=== PATIENT | female | born 1965 | race Caucasian/White ===

== ENCOUNTER 2018-06-17 18:04 | Emergency (ER) | payer BC ==
[~2018-06-17] VITALS: Ht 157.5 cm; Wt 127.1 kg
[~2018-06-17 18:04] MED LIST: CETI10TA20 PO; LINE600T5 PO; SERT50TA2 PO; ZOLP5TAB PO
[2018-06-17] MEDS ORDERED: ASPIRIN 81 MG CHEW (CHILDREN'S ASA) PO ONE (18:15)
--- NOTE | 2018-06-17 18:22 | ED Cardiac General ---
History of Present Illness General Stated Complaint: PULSE 250 1 HR AGO, SWEATING,DIZZY Source: patient Exam Limitations: no limitations History of Present Illness Date Seen by Provider: Jun 17, 2018 Time Seen by Provider: 18:19 Initial Comments To ER per private vehicle with reports of high heart rate as high as 250 per her monitor at work. 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 At the time she had some tightness in her neck sweatiness and shakiness. This happened at about 5 PM. Symptoms lasted about 45 minutes while she was driving here and resolved spontaneously. She had a similar episode 2 years ago where she went to the [facility] and states that they "stopped my heart and restarted it" referring to using a medication. They then started her on metoprolol and she followed up with Dr. High from cardiology at [place]. He told her that she could stop taking the metoprolol at any time and she's not had any issues since then. At the time of presentation to the emergency room she states that she feels back to normal Timing/Duration: 1-3 hours Severity: moderate Activities at Onset: none NTG SL STEAM TABLE WORKER: No ASA po STEAM TABLE WORKER: No Associated Systoms: Chest Pain; No Nausea/Vomiting Allergies and Home Medications Allergies Coded Allergies: Penicillins (Verified Allergy, Unknown, 05/28/15) Sulfa (Sulfonamide Antibiotics) (Verified Allergy, Unknown, 05/28/15) Home Medications Cetirizine HCl 10 Mg Tablet, 10 MG PO DAILY PRN for ALLERGIES, (Reported) Sertraline HCl 50 Mg Tablet, 50 MG PO HS, (Reported) Zolpidem Tartrate 5 Mg Tablet, 2.5 MG PO HS, (Reported) TAKES 1/2 (5MG) TABLET Patient Home Medication List Home Medication List Reviewed: Yes Review of Systems Review of Systems Constitutional: see HPI EENTM: No Symptoms Reported Respiratory: No Symptoms Reported Cardiovascular: See HPI; Denies Chest Pain; Palpitations Gastrointestinal: No Symptoms Reported Genitourinary: No Symptoms Reported Musculoskeletal: no symptoms reported Skin: no symptoms reported Psychiatric/Neurological: No Symptoms Reported Endocrine: No Symptoms Reported Hematologic/Lymphatic: No Symptoms Reported Past Qohnicp-Qwpgoe-Axqxxs Hx Patient Social History Recent Foreign Travel: No Contact w/Someone Who Travel: No Past Medical History Section Reproductive Disorders: Yes Sexually Transmitted Disease: No HIV/AIDS: No Depression Family Medical History Respiratory disorder 19 FATHER Physical Exam Vital Signs Vital Signs - First Documented Capillary Refill : Height, Weight, BMI Height: 5'2.00" Weight: 280lbs. 2.0oz. 127.734531wa; BMI Method: General Appearance: No Apparent Distress, WD/WN, Obese HEENT: PERRL/EOMI, TMs Normal Neck: Full Range of Motion, Normal Inspection Respiratory: No Accessory Muscle Use, No Respiratory Distress Cardiovascular: Normal Peripheral Pulses, Tachycardia (111 sinus rhythm) Gastrointestinal: Non Tender Extremity: Normal Capillary Refill, Normal Inspection Neurologic/Psychiatric: Alert, Oriented x3 Skin: Normal Color, Warm/Dry Progress/Results/Core Measures Results/Orders Lab Results Laboratory Tests Test 06/17/18 18:17 Range/Units White Blood Count 6.9 4.3-11.0 10^3/uL Red Blood Count 5.09 4.35-5.85 10^6/uL Hemoglobin 16.3 H 11.5-16.0 G/DL Hematocrit 46 35-52 % Mean Corpuscular Volume 90 80-99 FL Mean Corpuscular Hemoglobin 32 25-34 PG Mean Corpuscular Hemoglobin Concent 36 32-36 G/DL Red Cell Distribution Width 13.8 10.0-14.5 % Platelet Count 255 130-400 10^3/uL Mean Platelet Volume 10.5 H 7.4-10.4 FL Neutrophils (%) (Auto) 58 42-75 % Lymphocytes (%) (Auto) 29 12-44 % Monocytes (%) (Auto) 11 0-12 % Eosinophils (%) (Auto) 2 0-10 % Basophils (%) (Auto) 0 0-10 % Neutrophils # (Auto) 4.0 1.8-7.8 X 10^3 Lymphocytes # (Auto) 2.0 1.0-4.0 X 10^3 Monocytes # (Auto) 0.8 0.0-1.0 X 10^3 Eosinophils # (Auto) 0.2 0.0-0.3 10^3/uL Basophils # (Auto) 0.0 0.0-0.1 10^3/uL Prothrombin Time 12.6 12.2-14.7 SEC INR Comment 0.9 0.8-1.4 Activated Partial Thromboplast Time 30 24-35 SEC D-Dimer 0.29 0.00-0.49 UG/ML Sodium Level 139 135-145 MMOL/L Potassium Level 3.7 3.6-5.0 MMOL/L Chloride Level 109 H 98-107 MMOL/L Carbon Dioxide Level 19 L 21-32 MMOL/L Anion Gap 11 5-14 MMOL/L Blood Urea Nitrogen 18 7-18 MG/DL Creatinine 0.81 0.60-1.30 MG/DL Estimat Glomerular Filtration Rate > 60 BUN/Creatinine Ratio 22 Glucose Level 117 H 70-105 MG/DL Calcium Level 9.5 8.5-10.1 MG/DL Corrected Calcium 9.2 8.5-10.1 MG/DL Magnesium Level 2.3 1.8-2.4 MG/DL Total Bilirubin 0.4 0.1-1.0 MG/DL Aspartate Amino Transf (AST/SGOT) 33 5-34 U/L Alanine Aminotransferase (ALT/SGPT) 37 0-55 U/L Alkaline Phosphatase 81 40-136 U/L Myoglobin 25.9 10.0-92.0 NG/ML Troponin I < 0.30 <0.30 NG/ML B-Type Natriuretic Peptide 23.5 <100.0 PG/ML Total Protein 7.7 6.4-8.2 GM/DL Albumin 4.4 3.2-4.5 GM/DL My Orders Orders - VLADIMIR HIGH APRN Cbc With Automated Diff (06/17/18 18:06) Magnesium (06/17/18 18:06) Ekg Tracing (06/17/18 18:06) Cardiac Profile 1 (06/17/18 18:06) Comprehensive Metabolic Panel (06/17/18 18:) Myoglobin Serum (06/17/18 18:) Protime With Inr (06/17/18 18:) Partial Thromboplastin Time (06/17/18 18:06) O2 (06/17/18 18:06) Monitor-Rhythm Ecg Trace Only (06/17/18 18:) Lipid Panel (06/18/18 06:00) Aspirin Chewable Tablet (Baby Aspirin Ch (06/17/18 18:15) Saline Lock/Iv-Start (06/17/18 18:06) BNP (06/17/18 18:06) Fibrin Degradation Products (06/17/18 18:06) Metoprolol Tartrate Injection (Lopressor (06/17/18 18:30) Ns Iv 500 Ml (Sodium Chloride 0.9%) (06/17/18 18:30) Troponin I (06/17/18 20:30) Ekg Tracing (06/17/18 20:30) Medications Given in ED Current Medications Medications Dose Ordered Sig/Sean Route Start Time Stop Time Status Last Admin Dose Admin Aspirin 324 mg ONCE ONCE PO 06/17/18 18:15 06/17/18 18:16 DC 06/17/18 18:47 324 MG Metoprolol Tartrate 5 mg ONCE ONCE IV 06/17/18 18:30 06/17/18 18:31 DC 06/17/18 18:48 5 MG Vital Signs/I&O 06/17/18 06/17/18 18:40 18:40 Temp 98.1 Pulse 99 Resp 22 B/P (MAP) 180/97 (124) Pulse Ox 99 99 O2 Delivery Room Air Room Air Departure Communication (Admissions) 2010-her blood pressures down to 151/93. Heart rate 80s sinus without ectopy. She is feeling back to normal. If her repeat troponin and EKG is unremarkable we will discharge to home. If her blood pressure remains elevated at home I advised her that she should check it at work couple of times over the remainder of this week. If systolic greater than 150 start the high blood pressure medication. Impression Primary Impression: History of tachycardia Additional Impression: suspected PSVT Disposition: HOME, SELF-CARE Condition: Improved Departure-Patient Inst. Decision time for Depature: 20:09 Referrals: PARISA HUTCHINSON (PCP/Family) Primary Care Physician Patient Instructions: Paroxysmal Supraventricular Tachycardia (DC) Add. Discharge Instructions: 1. If the top number of your blood pressure is over 150mmHg on readings at work on 2 different days then start the high blood pressure medication as directed. Follow-up with your primary care provider within the next few weeks for follow- up. Scripts Metoprolol Succinate (Toprol Xl) 50 Mg Tab.er.24h 50 MG PO DAILY, #30 TAB Prov: VLADIMIR HIGH APRN 06/17/18 Work/School Note: Work Release Form Date Seen in the Emergency Department: Jun 17, 2018 Return to Work: Jun 18, 2018 VLADIMIR HIGH APRN Jun 17, 2018 18:22
[2018-06-17 18:25] LABS: BASOPHILS % (AUTO) 0 % (0-10); EOSINOPHILS # (AUTO) 0.2 10^3/uL (0.0-0.3); EOSINOPHILS % (AUTO) 2 % (0-10); HEMATOCRIT 46 % (35-52); HEMOGLOBIN 16.3 G/DL (11.5-16.0); LYMPHOCYTES % (AUTO) 29 % (12-44); MEAN CORPUSCULAR HEMOGLOBIN 32 PG (25-34); MEAN CORPUSCULAR HGB CONC 36 G/DL (32-36); MEAN CORPUSCULAR VOLUME 90 FL (80-99); MEAN PLATELET VOLUME 10.5 FL (7.4-10.4); MONOCYTES # (AUTO) 0.8 X 10^3 (0.0-1.0); MONOCYTES % (AUTO) 11 % (0-12); NEUTROPHILS % (AUTO) 58 % (42-75); PLATELET COUNT 255 10^3/uL (130-400); RED BLOOD COUNT 5.09 10^6/uL (4.35-5.85); RED CELL DISTRIBUTION WIDTH 13.8 % (10.0-14.5); WHITE BLOOD COUNT 6.9 10^3/uL (4.3-11.0)
[2018-06-17] MEDS ORDERED: NS IV 500 ML 500 ML IV SCH (18:30)
[2018-06-17] MEDS ORDERED: meTOprolol 5 MG/5 ML (LOPRESSOR) VIAL IV ONE (18:30)
[2018-06-17 18:38] LABS: INR 0.9 (0.8-1.4); PROTHROMBIN TIME PATIENT 12.6 SEC (12.2-14.7)
--- OUTSIDE RECORDS SUMMARY | 2018-06-17 18:43 | XMS REPORT ---
Author Author Kalyani Colbert [facility] Address [address] [place], [place] [id number] Care Team Providers Care Drugless Doctor Name Role Phone Kalyani Colbert PCP Zuri Perez PreferredProvider Allergies and Adverse Reactions Name Reaction Notes SULFA (SULFONAMIDES) PENICILLINS Plan of Treatment Planned Activity Comments Planned Date Planned Time Plan/Goal Lipid panel 09/16/2017 12:00 AM CBC W/ AUTO DIFF (RFLX MAN DIFF IF IND). 09/16/2017 12:00 AM CMP 09/16/2017 12:00 AM Medications Active Name Start Date Estimated Completion Date SIG Comments Claritin 10 mg oral tablet take 1 tablet (10 mg) by oral route once daily Xanax 0.25 mg oral tablet 03/29/2018 take 1 tablet by oral route daily as needed ProAir HFA 90 mcg/actuation inhalation HFA aerosol inhaler 03/29/2018 inhale 1 puff (90 mcg) by inhalation route every 4-6 hours as needed Lexapro 10 mg oral tablet 04/14/2018 take 1 tablet (10 mg) by oral route once daily Name Start Date Expiration Date SIG Comments Cipro 500 mg oral tablet 10/28/2013 11/04/2013 take 1 tablet (500 mg) by oral route every 12 hours for 7 days Zithromax Z-Manolo 250 mg oral tablet 12/05/2013 12/10/2013 take 2 tablets (500 mg) by oral route once daily for 1 day then 1 tablet (250 mg) by oral route once daily for 4 days zolpidem 5 mg oral tablet 10/09/2016 04/07/2017 take 1 tablet (5 mg) by oral route once daily at bedtime for 30 days Zithromax 250 mg oral tablet 10/28/2016 11/02/2016 take 2 tablets (500 mg) by oral route once daily for 1 day then 1 tablet (250 mg) by oral route once daily for 4 days Singulair 10 mg oral tablet 10/28/2016 12/27/2016 take 1 tablet (10 mg) by oral route once daily in the evening for 30 days promethazine-codeine 6.25-10 mg/5 mL oral syrup 10/28/2016 11/04/2016 take 5 milliliters by oral route every 4-6 hours as needed, not to exceed 30 mL in 24 hours for 7 days azithromycin 250 mg oral tablet 03/06/2018 03/11/2018 take 2 tablets (500 mg) by oral route once daily for 1 day then 1 tablet (250 mg) by oral route once daily for 4 days Discontinued Name Start Date Discontinued Date SIG Comments TriNessa () 0.18/0.215/0.25 mg-35 mcg (28) oral tablet 02/12/2016 take 1 tablet by oral route once daily Aldactone 100 mg oral tablet 02/12/2016 take 1 tablet (100 mg) by oral route once daily Medrol (Manolo) 4 mg oral tablets,dose pack 10/28/2013 02/12/2016 take as directed promethazine-codeine 6.25-10 mg/5 mL oral syrup 12/05/2013 02/12/2016 take 5 milliliters by oral route every 4-6 hours as needed, not to exceed 30 mL in 24 hours melatonin 5 mg oral capsule 10/09/2016 Zyrtec 10 mg oral tablet 10/09/2016 take 1 tablet (10 mg) by oral route once daily Zoloft 50 mg oral tablet 10/15/2017 03/29/2018 1 tablet bid change to Viibryd Viibryd 40 mg oral tablet 03/29/2018 04/14/2018 take 1 tablet (40 mg) by oral route once daily with food for 30 days Changed to Lexapro 10mg Problem List Not available. Vital Signs Date Time BP-Sys(mm[Hg] BP-Ciera(mm[Hg]) HR(bpm) RR(rpm) Temp WT HT HC BMI BSA BMI Percentile O2 Sat(%) 03/29/2018 1:31:00 PM 152 mmHg 90 mmHg 96 bpm 18 rpm 97.5 F 255.5 lbs 62 in 46.7311 kg/m 2.2516 m 95 % 03/06/2018 10:55:00 AM 128 mmHg 80 mmHg 76 bpm 18 rpm 98.1 F 260.5 lbs 62 in 47.65 kg/m2 2.27 m2 95 % 09/16/2017 9:38:00 AM 124 mmHg 70 mmHg 78 bpm 18 rpm 97.6 F 268 lbs 62 in 49.0173 kg/m 2.306 m 95 % 10/28/2016 3:30:00 PM 142 mmHg 88 mmHg 90 bpm 18 rpm 97.8 F 265.25 lbs 62 in 48.51 kg/m2 2.29 m2 96 % 10/09/2016 1:53:00 PM 118 mmHg 70 mmHg 76 bpm 18 rpm 97.6 F 268.375 lbs 62 in 49.0859 kg/m 2.3076 m 97 % 02/12/2016 8:29:00 AM 132 mmHg 76 mmHg 66 bpm 18 rpm 98.1 F 270.5 lbs 98 % 12/05/2013 11:11:00 AM 142 mmHg 74 mmHg 96 bpm 18 rpm 97.6 F 262.375 lbs 62 in 47.9885 kg/m 2.2817 m 96 % 10/28/2013 10:16:00 AM 130 mmHg 85 mmHg 74 bpm 16 rpm 96.3 F 256 lbs 97 % 06/17/2013 4:06:00 PM 120 mmHg 80 mmHg 74 bpm 18 rpm 98.4 F 237 lbs 62 in 43.3474 kg/m 2.1686 m 98 % Social History Name Description Comments Caffeine Current every day 8 cups a day Tobacco Former smoker Alcohol Use - Rare History of Procedures Date Ordered Description Order Status 10/28/2016 12:00 AM THER/PROPH/DIAG INJ SC/IM Reviewed 10/28/2016 12:00 AM Decadron 4mg Injection Reviewed 10/28/2016 12:00 AM Depo-Medrol 40mg Injection Reviewed 09/16/2017 12:00 AM CYTOPATH C/V THIN LAYER Reviewed 03/06/2018 12:00 AM AIRWAY INHALATION TREATMENT Reviewed 03/06/2018 12:00 AM THER/PROPH/DIAG INJ SC/IM Reviewed 03/06/2018 12:00 AM Decadron 4mg Injection Reviewed 03/06/2018 12:00 AM Depo-Medrol 40mg Injection Reviewed 06/17/2013 12:00 AM THER/PROPH/DIAG INJ SC/IM Reviewed 06/17/2013 12:00 AM Depo-Medrol, Per 80 Mg NDC#2837-3080-24. Injected IM left glut. Lot: [id number] Exp: 07/29. Jemma ALEXANDER Reviewed 06/17/2013 12:00 AM Decadron, Per 1 Mg NDC# [address]-02. Injected 8 mg IM left glut. Lot: [id number] Exp: 02/25. Jemma ALEXANDER Reviewed 12/05/2013 12:00 AM THER/PROPH/DIAG INJ SC/IM Reviewed 12/05/2013 12:00 AM Decadron, Per 1 Mg NDC# [address]-35 Reviewed 12/05/2013 12:00 AM Depo-Medrol, Per 80 Mg NDC#0491-7554-25 Reviewed Results Summary Not available. History Of Immunizations Not available. History of Past Illness Name Date of Onset Comments Depression with Anxiety Polycystic Ovaries Bronchitis Upper Respiratory Infections Jun 17 2013 4:08PM Sinusitis Oct 28 2013 10:18AM Upper Respiratory Infections Dec 05 2013 11:14AM Pre-employment examination Feb 12 2016 8:34AM Obesity Oct 09 2016 1:53PM Insomnia, unspecified type Oct 09 2016 1:53PM Anxiety Oct 09 2016 1:53PM Perimenopausal Oct 09 2016 1:53PM Cough Oct 28 2016 3:33PM Purulent rhinitis Oct 28 2016 3:33PM Reactive airway disease that is not asthma Oct 28 2016 3:33PM General medical examination; routine general medical examination at a health care facility Sep 16 2017 9:39AM Screening Mammogram For High Risk Patient Sep 16 2017 9:39AM Menopause Sep 16 2017 9:39AM Anxiety Sep 16 2017 9:39AM Mood swings Sep 16 2017 9:39AM Depression (emotion) Sep 16 2017 9:39AM Bronchitis Mar 06 2018 11:00AM Wheezing Mar 06 2018 11:00AM Acute bronchitis, unspecified organism Mar 29 2018 1:34PM Anxiety Mar 29 2018 1:34PM Moderate episode of recurrent major depressive disorder Mar 29 2018 1:34PM Payers Insurance Name Company Name Plan Name Plan Number Policy Number Policy Group Number Start Date [employer] [facility] [id number] Monday, 2015 [facility] Occupational Medicine [phone] N/A [employer] [facility] [id number] Saturday, September 14, 2013 History of Encounters Visit Date Visit Type Provider 03/29/2018 Office visit Kalyani Colbert RELOCATION SERVICES SPECIALIST 03/06/2018 Office visit Gillian Valadez RELOCATION SERVICES SPECIALIST 09/16/2017 Office visit Zuri Perez RELOCATION SERVICES SPECIALIST 10/28/2016 Office visit Zuri Perez RELOCATION SERVICES SPECIALIST 10/09/2016 Office visit Zuri Perez RELOCATION SERVICES SPECIALIST 02/12/2016 Office visit Kalyani Colbert RELOCATION SERVICES SPECIALIST 05/21/2015 [facility] Ryne High MD 12/05/2013 Office visit Kalyani Colbert RELOCATION SERVICES SPECIALIST 10/28/2013 Office visit Eduardo Edge RELOCATION SERVICES SPECIALIST 06/17/2013 Office visit Eduardo Edge RELOCATION SERVICES SPECIALIST
--- OUTSIDE RECORDS SUMMARY | 2018-06-17 18:44 | XMS REPORT ---
Author Author Kalyani Colbert [facility] Address [address] [place], [place] [id number] Care Team Providers Care Artificial Breeding Technician Name Role Phone Kalyani Colbert PCP Zuri [...] 06/17/2013 12:00 AM Depo-Medrol, Per 80 Mg NDC#5449-9042-12. Injected IM left glut. Lot: [id number] Exp: 07/29. Jemma ALEXANDER Reviewed 06/17/2013 12:00 AM Decadron, Per 1 Mg NDC# [address]-72. Injected 8 mg IM left glut. Lot: [id number] Exp: 02/25. Jemma ALEXANDER Reviewed 12/05/2013 12:00 AM THER/PROPH/DIAG INJ SC/IM Reviewed 12/05/2013 12:00 AM Decadron, Per 1 Mg NDC# [address]-47 Reviewed 12/05/2013 12:00 AM Depo-Medrol, Per 80 Mg NDC#9121-8315-85 Reviewed Results Summary Not available. History Of [...] Number Policy Group Number Start Date [employer]BS [facility] [id number] Monday, 2015 [facility] Occupational Medicine [phone] N/A [employer]BS [facility] [id number] Saturday, September 14, 2013 History of Encounters Visit Date Visit Type Provider 03/29/2018 Office visit Kalyani Colbert MANAGER CODING 03/06/2018 Office visit Gillian Valadez MANAGER CODING 09/16/2017 Office visit Zuri Perez MANAGER CODING 10/28/2016 Office visit Zuri Perez MANAGER CODING 10/09/2016 Office visit Zuri Perez MANAGER CODING 02/12/2016 Office visit Kalyani Colbert MANAGER CODING 05/21/2015 [facility] Ryne High MD 12/05/2013 Office visit Kalyani Colbert MANAGER CODING 10/28/2013 Office visit Eduardo Edge MANAGER CODING 06/17/2013 Office visit dEuardo Edge MANAGER CODING
--- OUTSIDE RECORDS SUMMARY | 2018-06-17 18:44 | XMS REPORT ---
Author Author Zuri Perez Organization [facility] Address [address] [place], [place] [id number] Care Team Providers Care Sleeve Setter Safety Stitch Name Role Phone Zuri Perez PCP [phone] Zuri Perez PreferredProvider [phone] Allergies and Adverse Reactions Name Reaction Notes SULFA (SULFONAMIDES) PENICILLINS Plan of Treatment Not available. Medications Active Name Start Date Estimated Completion Date SIG Comments Zoloft 50 mg oral tablet 10/09/2016 04/07/2017 1/2 tablet in am and 1 tablet in pm zolpidem 5 mg oral tablet 10/09/2016 04/07/2017 take 1 tablet (5 mg) by oral route once daily at bedtime for 30 days Singulair 10 mg oral tablet 10/28/2016 12/27/2016 take 1 tablet (10 mg) by oral route once daily in the evening for 30 days Name Start Date Expiration Date SIG Comments Cipro 500 mg oral tablet 10/28/2013 11/04/2013 take 1 tablet (500 mg) by oral route every 12 hours for 7 days Zithromax Z-Manolo 250 mg oral tablet 12/05/2013 12/10/2013 take 2 tablets (500 mg) by oral route once daily for 1 day then 1 tablet (250 mg) by oral route once daily for 4 days Zithromax 250 mg oral tablet 10/28/2016 11/02/2016 take 2 tablets (500 mg) by oral route once daily for 1 day then 1 tablet (250 mg) by oral route once daily for 4 days promethazine-codeine 6.25-10 mg/5 mL oral syrup 10/28/2016 11/04/2016 take 5 milliliters by oral route every 4-6 hours as needed, not to exceed 30 mL in 24 hours for 7 days Discontinued Name Start Date Discontinued Date SIG Comments TriNessa (28) 0.18/0.215/0.25 mg-35 mcg (28) oral tablet 02/12/2016 [...] (10 mg) by oral route once daily Problem List Not available. Vital Signs Date Time BP-Sys(mm[Hg] BP-Ciera(mm[Hg]) HR(bpm) RR(rpm) Temp WT HT HC BMI BSA BMI Percentile O2 Sat(%) 10/28/2016 3:30:00 PM 142 mmHg 88 mmHg [...] 10/28/2016 12:00 AM Depo-Medrol 40mg Injection Reviewed 06/17/2013 12:00 AM THER/PROPH/DIAG INJ SC/IM Reviewed 06/17/2013 12:00 AM Depo-Medrol, Per 80 Mg NDC#4385-4652-77. Injected IM left glut. Lot: [id number] Exp: 07/29. Jemma APPRAISAL SPECIALIST Reviewed 06/17/2013 12:00 AM Decadron, Per 1 Mg [facility]# [address]-60. Injected 8 mg IM left glut. Lot: [id number] Exp: 02/25. Jemma APPRAISAL SPECIALIST Reviewed 12/05/2013 12:00 AM THER/PROPH/DIAG INJ SC/IM Reviewed 12/05/2013 12:00 AM Decadron, Per 1 Mg NDC# [address]-07 Reviewed 12/05/2013 12:00 AM Depo-Medrol, Per 80 Mg ND#1771-1850-46 Reviewed Results Summary Not available. History Of [...] is not asthma Oct 28 2016 3:33PM Payers Insurance Name Company Name Plan Name Plan Number Policy Number Policy Group Number Start Date [facility] [id number] Monday, 2015 [facility] Occupational Medicine [phone] N[facility] [id number] Saturday, September 14, 2013 History of Encounters Visit Date Visit Type Provider 10/28/2016 Office visit Zuri ePrez TEACHER THEATER ARTS 10/09/2016 Office visit Zuri Perez TEACHER THEATER ARTS 02/12/2016 Office visit Kalyani Colbert TEACHER THEATER ARTS 05/21/2015 [facility] Ryne High MD 12/05/2013 Office visit Kalyani Colbert APRN 10/28/2013 Office visit Eduardo Edge APRN 06/17/2013 Office visit Eduardo Edge APRN
--- OUTSIDE RECORDS SUMMARY | 2018-06-17 18:44 | XMS REPORT ---
Author Author Kalyani Colbert [facility] Address [address] [place], [place] [address] Care Team Providers Care Electric Repair Supervisor Name Role Phone Kalyani Colbert PCP Zuri [...] (10 mg) by oral route once daily Viibryd 40 mg oral tablet 03/29/2018 04/28/2018 take 1 tablet (40 mg) by oral route once daily with food for 30 days Xanax 0.25 mg oral tablet 03/29/2018 take 1 tablet by oral route daily as needed ProAir HFA 90 mcg/actuation inhalation HFA aerosol inhaler 03/29/2018 inhale 1 puff (90 mcg) by inhalation route every 4-6 hours as needed Name Start Date Expiration Date SIG Comments [...] 03/29/2018 1 tablet bid change to Viibryd Problem List Not available. Vital Signs Date [...] 06/17/2013 12:00 AM Depo-Medrol, Per 80 Mg [facility]#7938-0152-94. Injected IM left glut. Lot: [id number] Exp: 07/29. JPayne SUPERVISOR POWDERED METAL Reviewed 06/17/2013 12:00 AM Decadron, Per 1 Mg [facility]# [address]-75. Injected 8 mg IM left glut. Lot: [id number] Exp: 02/25. Jemma SUPERVISOR POWDERED METAL Reviewed 12/05/2013 12:00 AM THER/PROPH/DIAG INJ SC/IM Reviewed 12/05/2013 12:00 AM Decadron, Per 1 Mg [facility]# [address]-50 Reviewed 12/05/2013 12:00 AM Depo-Medrol, Per 80 Mg [facility]#5154-4265-11 Reviewed Results Summary Not available. History Of [...] Number Policy Group Number Start Date [employer] [facility] [id number] Monday, 2015 [facility] Occupational Medicine [phone] N/A [employer] [facility] [id number] Saturday, September 14, 2013 History of Encounters Visit Date Visit Type Provider 03/29/2018 Office visit Kalyani Colbert STRIPPER BLACK AND WHITE 03/06/2018 Office visit Gillian Valadez STRIPPER BLACK AND WHITE 09/16/2017 Office visit Zuri MainHumberto Perez STRIPPER BLACK AND WHITE 10/28/2016 Office visit Zuri Iain Perez STRIPPER BLACK AND WHITE 10/09/2016 Office visit Zuri Perez STRIPPER BLACK AND WHITE 02/12/2016 Office visit Kalyani Colbert STRIPPER BLACK AND WHITE 05/21/2015 [facility] Ryne High MD 12/05/2013 Office visit Kalyani Colbert STRIPPER BLACK AND WHITE 10/28/2013 Office visit Eduardo Edge STRIPPER BLACK AND WHITE 06/17/2013 Office visit Eduardo Edge STRIPPER BLACK AND WHITE
--- OUTSIDE RECORDS SUMMARY | 2018-06-17 18:44 | XMS REPORT ---
Author Author Kalyani Colbert Organization [facility] Address [address] [place], [place] [id number] Care Team Providers Care Manager Msw Name Role Phone Kalyani Colbert PCP Unavailable Allergies and Adverse Reactions Name Reaction Notes SULFA (SULFONAMIDES) PENICILLINS Plan of Treatment Not available. Medications Active Name Start Date Estimated Completion Date SIG Comments Zoloft 50 mg oral tablet take 1 tablet (50 mg) by oral route once daily melatonin 5 mg oral capsule Zyrtec 10 mg oral tablet take 1 tablet [...] to exceed 30 mL in 24 hours Problem List Not available. Vital Signs Date Time BP-Sys(mm[Hg] BP-Ciera(mm[Hg]) HR(bpm) RR(rpm) Temp WT HT HC BMI BSA BMI Percentile O2 Sat(%) 02/12/2016 8:29:00 AM 132 mmHg 76 mmHg [...] 98 % Social History Name Description Comments Tobacco Former smoker 02/12/2016 - Alcohol Use - Rare History of Procedures Date Ordered Description Order Status 06/17/2013 12:00 AM THER/PROPH/DIAG INJ SC/IM Reviewed 06/17/2013 12:00 AM Depo-Medrol, Per 80 Mg NDC#6820-9826-49. Injected IM left glut. Lot: [id number] Exp: 07/29. Jemma ALEXANDER Reviewed 06/17/2013 12:00 AM Decadron, Per 1 Mg ND# [address]-60. Injected 8 mg IM left glut. Lot: [id number] Exp: 02/25. Jemma ALEXANDER Reviewed 12/05/2013 12:00 AM THER/PROPH/DIAG INJ SC/IM Reviewed 12/05/2013 12:00 AM Decadron, Per 1 Mg NDC# [address]-74 Reviewed 12/05/2013 12:00 AM Depo-Medrol, Per 80 Mg [facility]#2285-9611-93 Reviewed Results Summary Not available. History Of Immunizations Not available. History of Past Illness Name Date of Onset Comments Depression with Anxiety Polycystic Ovaries Bronchitis Upper Respiratory Infections Jun 17 2013 4:08PM Sinusitis Oct 28 2013 10:18AM Upper Respiratory Infections Dec 05 2013 11:14AM Pre-employment examination Feb 12 2016 8:34AM Payers Insurance Name Company Name Plan Name Plan Number Policy Number Policy Group Number Start Date BCBS [facility] [id number] N[facility] [id number] N/A History of Encounters Visit Date Visit Type Provider 02/12/2016 Office visit Kalyani Colbert WOOD FUEL PELLETIZER 05/21/2015 [facility] Ryne High MD 12/05/2013 Office visit Kalyani Colbert WOOD FUEL PELLETIZER 10/28/2013 Office visit Eduardo Edge WOOD FUEL PELLETIZER 06/17/2013 Office visit Eduardo Edge APRN
--- OUTSIDE RECORDS SUMMARY | 2018-06-17 18:45 | XMS REPORT ---
Author Author Zuri Perez Organization [facility] Address [address] [place], [place] [id number] Care Team Providers Care Greenhouse Superintendent Name Role Phone Zuri Perez PCP Zuri Perez PreferredProvider Allergies and Adverse [...] once daily Zoloft 50 mg oral tablet 09/16/2017 1/2 tablet in am and 1 tablet in pm Name Start Date Expiration Date SIG Comments [...] HC BMI BSA BMI Percentile O2 Sat(%) 09/16/2017 9:38:00 AM 124 mmHg 70 mmHg 78 bpm 18 rpm 97.6 F 268 lbs 62 in 49.02 kg/m2 2.31 m2 95 % 10/28/2016 3:30:00 PM 142 mmHg 88 mmHg 90 bpm 18 rpm 97.8 F 265.25 lbs 62 in 48.5144 kg/m 2.2942 m 96 % 10/09/2016 1:53:00 PM 118 mmHg 70 mmHg 76 bpm 18 rpm 97.6 F 268.375 lbs 62 in 49.09 kg/m2 2.31 m2 97 % 02/12/2016 8:29:00 AM 132 mmHg 76 mmHg 66 bpm 18 rpm 98.1 F 270.5 lbs 98 % 12/05/2013 11:11:00 AM 142 mmHg 74 mmHg 96 bpm 18 rpm 97.6 F 262.375 lbs 62 in 47.99 kg/m2 2.28 m2 96 % 10/28/2013 10:16:00 AM 130 mmHg 85 mmHg 74 bpm 16 rpm 96.3 F 256 lbs 97 % 06/17/2013 4:06:00 PM 120 mmHg 80 mmHg 74 bpm 18 rpm 98.4 F 237 lbs 62 in 43.35 kg/m2 2.17 m2 98 % Social History Name Description Comments Caffeine Current every day 8 cups a day Tobacco Former smoker Alcohol Use - Rare History of Procedures Date Ordered Description Order Status 10/28/2016 12:00 AM THER/PROPH/DIAG INJ SC/IM Reviewed 10/28/2016 12:00 AM Decadron 4mg Injection Reviewed 10/28/2016 12:00 AM Depo-Medrol 40mg Injection Reviewed 09/16/2017 12:00 AM CYTOPATH C/V THIN LAYER Returned 06/17/2013 12:00 AM THER/PROPH/DIAG INJ SC/IM Reviewed 06/17/2013 12:00 AM Depo-Medrol, Per 80 Mg [facility]#[id number]. Injected IM left glut. Lot: [id number] Exp: 07/29. Jemma ALEXANDER Reviewed 06/17/2013 12:00 AM Decadron, Per 1 Mg [facility]# [address]-68. Injected 8 mg IM left glut. Lot: [id number] Exp: 02/25. Jemma ALEXANDER Reviewed 12/05/2013 12:00 AM THER/PROPH/DIAG INJ SC/IM Reviewed 12/05/2013 12:00 AM Decadron, Per 1 Mg ND# [address]-73 Reviewed 12/05/2013 12:00 AM Depo-Medrol, Per 80 Mg [facility]#9616-2508-41 Reviewed Results Summary Not available. History Of [...] 9:39AM Depression (emotion) Sep 16 2017 9:39AM Payers Insurance Name Company Name Plan Name Plan Number Policy Number Policy Group Number Start Date BCBS [facility] [place] [id number] Monday, 2015 [facility] Occupational Medicine [phone] N/A [employer]BS [employer] [place] [id number] Saturday, September 14, 2013 History of Encounters Visit Date Visit Type Provider 09/16/2017 Office visit Zuri Perez ENGINE ROOM OPERATOR 10/28/2016 Office visit Zuri Perez ENGINE ROOM OPERATOR 10/09/2016 Office visit Zuri Perez ENGINE ROOM OPERATOR 02/12/2016 Office visit Kalyani Colbert ENGINE ROOM OPERATOR 05/21/2015 [facility] Ryne High MD 12/05/2013 Office visit Kalyani Colbert ENGINE ROOM OPERATOR 10/28/2013 Office visit Eduardo Edge ENGINE ROOM OPERATOR 06/17/2013 Office visit Eduardo Edge ENGINE ROOM OPERATOR
--- OUTSIDE RECORDS SUMMARY | 2018-06-17 18:45 | XMS REPORT ---
Author Author Zuri Perez Organization [facility] Address [address] [place], [place] [id number] Care Team Providers Care Cook Fish And Chips Name Role Phone Zuri Perez PCP [phone] Zuri Perez PreferredProvider [phone] Allergies and Adverse Reactions Name Reaction Notes [...] 06/17/2013 12:00 AM Depo-Medrol, Per 80 Mg NDC#8899-1366-18. Injected IM left glut. Lot: [id number] Exp: 07/29. Jemma SWINE GENETICS RESEARCHER Reviewed 06/17/2013 12:00 AM Decadron, Per 1 Mg [facility] [place]NOTE 2]# [address]-62. Injected 8 mg IM left glut. Lot: [id number] Exp: 02/25. Jemma SWINE GENETICS RESEARCHER Reviewed 12/05/2013 12:00 AM THER/PROPH/DIAG INJ SC/IM Reviewed 12/05/2013 12:00 AM Decadron, Per 1 Mg NDC# [address]-70 Reviewed 12/05/2013 12:00 AM Depo-Medrol, Per 80 Mg ND#6610-9003-84 Reviewed Results Summary Not available. History Of [...] Policy Number Policy Group Number Start Date [facility] [id number] Monday, 2015 [facility] Med Occupational Medicine [phone] N[facility]A [facility] [id number] Saturday, September 14, 2013 History of Encounters Visit Date Visit Type Provider 10/28/2016 Office visit Zuri Perez PROBATION AND PAROLE OFFICER 10/09/2016 Office visit Zuri Perez PROBATION AND PAROLE OFFICER 02/12/2016 Office visit Kalyani Colbert PROBATION AND PAROLE OFFICER 05/21/2015 [facility] Ryne High MD 12/05/2013 Office visit Kalyani Colbert APRN 10/28/2013 Office visit Eduardo Edge APRN 06/17/2013 Office visit Eduardo Edge APRN
[2018-06-17 18:46] LABS: ALANINE AMINOTRANSFERASE 37 U/L (0-55); ALBUMIN 4.4 GM/DL (3.2-4.5); ALKALINE PHOSPHATASE 81 U/L (40-136); BILIRUBIN,TOTAL 0.4 MG/DL (0.1-1.0); BUN/CREATININE RATIO 22; CALCIUM 9.5 MG/DL (8.5-10.1); CARBON DIOXIDE 19 MMOL/L (21-32); CHLORIDE 109 MMOL/L (98-107); CREATININE SERUM 0.81 MG/DL (0.60-1.30); GFR ESTIMATED > 60; GLUCOSE 117 MG/DL (70-105); MAGNESIUM 2.3 MG/DL (1.8-2.4); POTASSIUM 3.7 MMOL/L (3.6-5.0); SODIUM 139 MMOL/L (135-145); TOTAL PROTEIN 7.7 GM/DL (6.4-8.2)
--- OUTSIDE RECORDS SUMMARY | 2018-06-17 18:46 | XMS REPORT | Continuity of Care Document ---
Author Author [facility] Address Unknown Phone Unavailable Allergies Active Description Code Type Severity Reaction Onset Reported/Identified Relationship to Patient Clinical Status Yes Penicillins [id number] Drug Allergy Unknown N/A 05/28/2015 Yes Sulfa (Sulfonamide Antibiotics) [id number] Drug Allergy Unknown N/A 2014 Medications There is no data. Problems Date Dx Coded Attending Type Code Diagnosis Diagnosed By 05/31/2015 ALIVIA DIAMOND DO Ot 038.9 05/31/2015 ALIVIA DIAMOND DO Ot 053.9 05/31/2015 ALIVIA DIAMOND DO Ot 256.4 05/31/2015 ALIVIA DIAMOND DO Ot 276.2 05/31/2015 ALIVIA DIAMOND DO Ot 276.51 05/31/2015 ALIVIA DIAMOND DO Ot 276.8 05/31/2015 ALIVIA DIAMOND DO Ot 278.00 05/31/2015 ALIVIA DIAMOND DO Ot 311 05/31/2015 ALIVIA DIAMOND DO Ot 458.9 05/31/2015 ALIVIA DIAMOND DO Ot 486 05/31/2015 ALIVIA DIAMOND DO Ot 510.9 05/31/2015 ALIVIA DIAMOND DO Ot 995.91 05/31/2015 ALIVIA DIAMOND DO Ot V85.42 05/31/2015 ALIVIA DIAMOND DO Ot 038.9 05/31/2015 ALIVIA DIAMOND DO Ot 053.9 05/31/2015 ALIVIA DIAMOND DO Ot 256.4 05/31/2015 ALIVIA DIAMOND DO Ot 276.2 05/31/2015 ALIVIA DIAMOND DO Ot 276.51 05/31/2015 ALIVIA DIAMOND DO Ot 276.8 05/31/2015 ALIVIA DIAMOND DO Ot 278.00 05/31/2015 ALIVIA DIAMOND DO Ot 311 05/31/2015 ALIVIA DIAMOND DO Ot 458.9 05/31/2015 LOBO DO, ALIVIA M Ot 486 05/31/2015 LOBO DO, ALIVIA M Ot 510.9 05/31/2015 LOBO DO, ALIVIA M Ot 995.91 05/31/2015 LOBO DO, ALIVIA M Ot V85.42 06/01/2015 LOBO DO, ALIVIA M Ot 038.9 06/01/2015 LOBO DO, ALIVIA M Ot 053.9 06/01/2015 LOBO DO, ALIVIA M Ot 256.4 06/01/2015 LOBO DO, ALIVIA M Ot 276.2 06/01/2015 LOBO DO, ALIVIA M Ot 276.51 06/01/2015 LOBO DO, ALIVIA M Ot 276.8 06/01/2015 LOBO DO, ALIVIA M Ot 278.00 06/01/2015 LOBO DO, ALIVIA M Ot 311 06/01/2015 LOBO DO, ALIVIA M Ot 458.9 06/01/2015 LOBO DO, ALIVIA M Ot 486 06/01/2015 LOBO DO, ALIVIA M Ot 510.9 06/01/2015 LOBO DO, ALIVIA M Ot 995.91 06/01/2015 LOBO DO, ALIVIA M Ot V85.42 06/02/2015 LOBO DO, ALIVIA M Ot 038.9 06/02/2015 LOBO DO, ALIVIA M Ot 053.9 06/02/2015 LOBO DO, ALIVIA M Ot 256.4 06/02/2015 LOBO DO, ALIVIA M Ot 276.2 06/02/2015 LOBO DO, ALIVIA M Ot 276.51 06/02/2015 LOBO DO, ALIVIA M Ot 276.8 06/02/2015 LOBO DO, ALIVIA M Ot 278.00 06/02/2015 LOBO DO, ALIVIA M Ot 311 06/02/2015 LOBO DO, ALIVIA M Ot 458.9 06/02/2015 LOBO DO, ALIVIA M Ot 486 06/02/2015 LOBO DO, ALIVIA M Ot 510.9 06/02/2015 LOBO DO, ALIVIA M Ot 995.91 06/02/2015 LOBO DO, ALIVIA M Ot V85.42 06/03/2015 LOBO DO, ALIVIA M Ot 038.9 06/03/2015 LOBO DO, ALIVIA M Ot 053.9 06/03/2015 LOBO DO, ALIVIA M Ot 256.4 06/03/2015 LOBO DO, ALIVIA M Ot 276.2 06/03/2015 LOBO DO, ALIVIA M Ot 276.51 06/03/2015 LOBO DO, ALIVIA M Ot 276.8 06/03/2015 LOBO DO, ALIVIA M Ot 278.00 06/03/2015 LOBO DO, ALIVIA M Ot 311 06/03/2015 LOBO DO, ALIVIA M Ot 458.9 06/03/2015 LOBO DO, ALIVIA M Ot 486 06/03/2015 LOBO DO, ALIVIA M Ot 510.9 06/03/2015 LOBO DO, ALIVIA M Ot 995.91 06/03/2015 LOBO DO, ALIVIA M Ot V85.42 06/04/2015 LOBO DO, ALIVIA M Ot 038.9 06/04/2015 LOBO DO, ALIVIA M Ot 053.9 06/04/2015 LOBO DO, ALIVIA M Ot 256.4 06/04/2015 LOBO DO, ALIVIA M Ot 276.2 06/04/2015 LOBO DO, ALIVIA M Ot 276.51 06/04/2015 LOBO DO, ALIVIA M Ot 276.8 06/04/2015 LOBO DO, ALIVIA M Ot 278.00 06/04/2015 LOBO DO, ALIVIA M Ot 311 06/04/2015 LOBO DO, ALIVIA M Ot 458.9 06/04/2015 LOBO DO, ALIVIA M Ot 486 06/04/2015 LOBO DO, ALIVIA M Ot 510.9 06/04/2015 LOBO DO, ALIVIA M Ot 995.91 06/04/2015 LOBO DO, ALIVIA M Ot V85.42 06/05/2015 LOBO DO, ALIVIA M Ot 038.9 06/05/2015 LOBO DO, ALIVIA M Ot 053.9 06/05/2015 LOBO DO, ALIVIA M Ot 256.4 06/05/2015 LOBO DO, ALIVIA M Ot 276.2 06/05/2015 LOBO DO, ALIVIA M Ot 276.51 06/05/2015 LOBO DO, ALIVIA M Ot 276.8 06/05/2015 LOBO DO, ALIVIA M Ot 278.00 06/05/2015 LOBO DO, ALIVIA M Ot 311 06/05/2015 LOBO DO, ALIVIA M Ot 458.9 06/05/2015 LOBO DO, ALIVIA M Ot 486 06/05/2015 LOBO DO, ALIVIA M Ot 510.9 06/05/2015 LOBO DO, ALIVIA M Ot 995.91 06/05/2015 LOBO DO, ALIVIA M Ot V85.42 06/05/2015 LOBO DO, ALIVIA M Ot 038.9 06/05/2015 LOBO DO, ALIVIA M Ot 053.9 06/05/2015 LOBO DO, ALIVIA M Ot 256.4 06/05/2015 LOBO DO, ALIVIA M Ot 276.2 06/05/2015 LOBO DO, ALIVIA M Ot 276.51 06/05/2015 LOBO DO, ALIVIA M Ot 276.8 06/05/2015 LOBO DO, ALIVIA M Ot 278.00 06/05/2015 LOBO DO, ALIVIA M Ot 311 06/05/2015 LOBO DO, ALIVIA M Ot 458.9 06/05/2015 LOBO DO, LAIVIA M Ot 486 06/05/2015 LOBO DO, ALIVIA M Ot 510.9 06/05/2015 LOBO DO, ALIVIA M Ot 995.91 06/05/2015 LOBO DO, ALIVIA M Ot V85.42 06/05/2015 LOBO DO, ALIVIA M Ot 038.9 06/05/2015 LOBO DO, ALIVIA M Ot 053.9 06/05/2015 LOBO DO, ALIVIA M Ot 256.4 06/05/2015 LOBO DO, ALIVIA M Ot 276.2 06/05/2015 LOBO DO, ALIVIA M Ot 276.51 06/05/2015 LOBO DO, ALIVIA M Ot 276.8 06/05/2015 LOBO DO, ALIVIA M Ot 278.00 06/05/2015 LOBO DO, ALIVIA M Ot 285.9 06/05/2015 LOBO DO, ALIVIA M Ot 311 06/05/2015 LOBO DO, ALIVIA M Ot 458.9 06/05/2015 LOBO DO, ALIVIA M Ot 482.42 06/05/2015 LOBO DO, ALIVIA M Ot 486 06/05/2015 ALIVIA DIAMOND DO Ot 510.9 06/05/2015 ALIVIA DIAMOND DO Ot 518.0 06/05/2015 ALIVIA DIAMOND DO Ot 518.81 06/05/2015 ALIVIA DIAMOND DO Ot 995.91 06/05/2015 ALIVIA DIAMOND DO Ot V85.42 07/11/2015 TESFAYE MALIK Obi SUBSTITUTE SCHOOL NURSE Ot J90 07/17/2015 [place] TESFAYE Obi SUBSTITUTE SCHOOL NURSE Ot J90 07/26/2015 KINGGISEL KNAPPINE Obi SUBSTITUTE SCHOOL NURSE Ot G47.00 07/26/2015 TESFAYE MALIK APRN Ot R06.02 08/17/2015 ALIVIA DIAMOND DO Ot R06.83 09/18/2015 KINGGISEL KNAPPINE Obi SUBSTITUTE SCHOOL NURSE Ot J90 09/18/2015 KINGTESFAYE KNAPP SUBSTITUTE SCHOOL NURSE Ot G47.00 09/18/2015 [place] TESFAYE Obi SUBSTITUTE SCHOOL NURSE Ot R06.02 Procedures There is no data. Results Test Result Range Complete blood count (CBC) with automated white blood cell (WBC) differential - 06/17/18 18:17 Blood leukocytes automated count (number/volume) 6.9 10*3/uL 4.3-11.0 Blood erythrocytes automated count (number/volume) 5.09 10*6/uL 4.35-5.85 Venous blood hemoglobin measurement (mass/volume) 16.3 g/dL 11.5-16.0 Blood hematocrit (volume fraction) 46 % 35-52 Automated erythrocyte mean corpuscular volume 90 [foz_us] 80-99 Automated erythrocyte mean corpuscular hemoglobin (mass per erythrocyte) 32 pg 25-34 Automated erythrocyte mean corpuscular hemoglobin concentration measurement ( mass/volume) 36 g/dL 32-36 Automated erythrocyte distribution width ratio 13.8 % 10.0-14.5 Automated blood platelet count (count/volume) 255 10*3/uL 130-400 Automated blood platelet mean volume measurement 10.5 [foz_us] 7.4-10.4 Automated blood neutrophils/100 leukocytes 58 % 42-75 Automated blood lymphocytes/100 leukocytes 29 % 12-44 Blood monocytes/100 leukocytes 11 % 0-12 Automated blood eosinophils/100 leukocytes 2 % 0-10 Automated blood basophils/100 leukocytes 0 % 0-10 Blood neutrophils automated count (number/volume) 4.0 10*3 1.8-7.8 Blood lymphocytes automated count (number/volume) 2.0 10*3 1.0-4.0 Blood monocytes automated count (number/volume) 0.8 10*3 0.0-1.0 Automated eosinophil count 0.2 10*3/uL 0.0-0.3 Automated blood basophil count (count/volume) 0.0 10*3/uL 0.0-0.1 Encounters ACCT No. Visit Date/Time Discharge Status Pt. Type Provider Facility Loc./Unit Complaint [id number] 03/29/2018 14:27:40 03/29/2018 23:59:59 CLS Outpatient Kalyani Colbert [id number] 03/06/2018 11:21:51 03/06/2018 23:59:59 CLS Outpatient Allyson Gillian Mckenzien [id number] 09/16/2017 10:32:30 09/16/2017 23:59:59 CLS Outpatient Ruben Perez [id number] 10/28/2016 16:12:23 10/28/2016 23:59:59 CLS Outpatient Ruben Perez [id number] 10/09/2016 14:45:09 10/09/2016 23:59:59 CLS Outpatient Ruben Perez [id number] 07/27/2015 15:47:51 07/27/2015 23:59:59 CLS Outpatient Ryne High [id number] 12/05/2013 11:51:09 12/05/2013 23:59:59 CLS Outpatient Kalyani Colbert [id number] 10/28/2013 11:06:54 10/28/2013 23:59:59 CLS Outpatient Eduardo Edge [id number] 08/17/2015 14:09:00 08/17/2015 14:37:00 DIS Outpatient ALIVIA DIAMOND DO [facility] SLEEP [id number] 07/11/2015 15:11:00 07/11/2015 23:59:59 CLS Outpatient TESFAYE MALIK APRN [facility] RT [id number] 07/01/2015 12:18:00 07/01/2015 23:59:59 CLS Outpatient TESFAYE MALIK APRN [facility] RAD [id number] 05/29/2015 08:21:00 06/05/2015 18:50:00 DIS Inpatient ALIVIA DIAMOND DO [facility] SURGICAL [id number] 06/17/2018 18:26:00 Document Registration
[2018-06-17 18:53] LABS: MYOGLOBIN SERUM 25.9 NG/ML (10.0-92.0)
[2018-06-17] MEDS ORDERED: METO-352 PO (20:10)
[2018-06-17 21:15] VITALS: BP 162/102
== END 2018-06-17 21:14 | disposition home or self-care (01) ==
LOC: ER 18:04
DX: R00.0 Tachycardia, unspecified (principal); F32.9 Major depressive disorder, single episode, unspecified; Z88.0 Allergy status to penicillin; Z88.2 Allergy status to sulfonamides; Z98.890 Other specified postprocedural states
CPT/HCPCS: 36415; 80053; 83735; 83874; 83880; 84484; 85025; 85379; 85610; 85730; 93005; 93041

== ENCOUNTER 2022-09-24 15:04 | Emergency (ER) | payer BC ==
[~2022-09-24] VITALS: Ht 157 cm; Wt 110.0 kg
[~2022-09-24 15:04] MED LIST changes: -CETI10TA20 PO; +CETI10TA49 PO; +LINE600T12 PO; -LINE600T5 PO; +METO-352 PO
[2022-09-24] MEDS ORDERED: methylPREDNISolone 125 MG (Solu-MEDROL) VIAL IV STA (15:17)
--- NOTE | 2022-09-24 15:21 | ED Respiratory ---
General Chief Complaint: Respiratory Problems Stated Complaint: INFLUENZA + - COUGH - SOA Source: patient Exam Limitations: no limitations History of Present Illness Date Seen by Provider: Sep 24, 2022 Time Seen by Provider: 15:15 Initial Comments History obtained from patient and urgent care provider via phone conversation. Patient is a 57-year-old female who presents to the emergency department for evaluation of persistent cough and shortness of air since being diagnosed with flu last week. Patient was seen at the walk-in clinic where they were concerned about her oxygen saturations being 92 to 93% on room air. Patient denies any chest pain. She denies any history of heart or lung problems. Denies any new swelling to her extremities. She states she was given a breathing treatment at the urgent care which seemed to help with her shortness of breath some. She is taking anything at home for the symptoms. She states her cough is nonproductive. Allergies and Home Medications Allergies Coded Allergies: Penicillins (Verified Allergy, Unknown, 05/28/15) Sulfa (Sulfonamide Antibiotics) (Verified Allergy, Unknown, 05/28/15) Patient Home Medication List Home Medication List Reviewed: Yes Cetirizine HCl (Zyrtec) 10 Mg Tablet, 10 MG PO DAILY PRN for ALLERGIES, (Reported) Entered as Reported by: JERRI WALLACE on 05/30/15 113 Metoprolol Succinate (Toprol Xl) 50 Mg Tab.er.24h, 50 MG PO DAILY Prescribed by: VLADIMIR HIGH on 06/17/182009 Sertraline HCl (Zoloft) 50 Mg Tablet, 50 MG PO HS, (Reported) Entered as Reported by: JERRI WALLACE on 05/30/15 113 Zolpidem Tartrate (Ambien) 5 Mg Tablet, 2.5 MG PO HS, (Reported) Entered as Reported by: JERRI WALLACE on 05/30/15 113 Review of Systems Review of Systems Constitutional: no symptoms reported EENTM: no symptoms reported Respiratory: see HPI, cough, short of breath Cardiovascular: no symptoms reported Gastrointestinal: no symptoms reported Genitourinary: no symptoms reported Musculoskeletal: no symptoms reported Skin: no symptoms reported Psychiatric/Neurological: No Symptoms Reported Hematologic/Lymphatic: No Symptoms Reported Immunological/Allergic: no symptoms reported Past Fooknqz-Pwmskz-Gdmaeh Hx Immunizations Up To Date Tetanus Booster (TDap): Unknown Seasonal Allergies Seasonal Allergies: No Past Medical History Surgeries: Yes (lung surgery) Section Respiratory: No Cardiac: No Neurological: No Reproductive Disorders: Yes 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 2.0oz. 127.231514ag; 44.44 BMI Method:Stated General Appearance: WD/WN, no apparent distress HEENT: PERRL/EOMI, normal ENT inspection, TMs normal Neck: non-tender, full range of motion, supple, normal inspection Respiratory: chest non-tender, no respiratory distress, no accessory muscle use, wheezing, expiration Cardiovascular: regular rate, rhythm Gastrointestinal: normal bowel sounds, non tender, soft, no organomegaly, no pulsatile mass Extremities: normal range of motion, non-tender, normal inspection Neurologic/Psychiatric: no motor/sensory deficits, alert, normal mood/affect, oriented x 3 Skin: normal color, warm/dry Progress/Results/Core Measures Suspected Sepsis SIRS Temperature: Pulse: Respiratory Rate: Laboratory Tests 09/24/22 15:15: White Blood Count 10.0 Blood Pressure / Mean: Laboratory Tests 09/24/22 15:15: Creatinine 0.67, Platelet Count 283, Total Bilirubin 0.5 Results/Orders Lab Results Laboratory Tests Test 09/24/22 15:15 09/24/22 15:31 Range/Units White Blood Count 10.0 4.3-11.0 10^3/uL Red Blood Count 4.73 3.80-5.11 10^6/uL Hemoglobin 14.6 11.5-16.0 g/dL Hematocrit 42 35-52 % Mean Corpuscular Volume 90 80-99 fL Mean Corpuscular Hemoglobin 31 25-34 pg Mean Corpuscular Hemoglobin Concent 34 32-36 g/dL Red Cell Distribution Width 11.9 10.0-14.5 % Platelet Count 283 130-400 10^3/uL Mean Platelet Volume 10.5 9.0-12.2 fL Immature Granulocyte % (Auto) 1 % Neutrophils (%) (Auto) 66 42-75 % Lymphocytes (%) (Auto) 21 12-44 % Monocytes (%) (Auto) 11 0-12 % Eosinophils (%) (Auto) 1 0-10 % Basophils (%) (Auto) 0 0-10 % Neutrophils # (Auto) 6.6 1.8-7.8 10^3/uL Lymphocytes # (Auto) 2.1 1.0-4.0 10^3/uL Monocytes # (Auto) 1.1 H 0.0-1.0 10^3/uL Eosinophils # (Auto) 0.1 0.0-0.3 10^3/uL Basophils # (Auto) 0.0 0.0-0.1 10^3/uL Immature Granulocyte # (Auto) 0.1 0.0-0.1 10^3/uL Sodium Level 140 135-145 MMOL/L Potassium Level 2.9 L 3.6-5.0 MMOL/L Chloride Level 104 98-107 MMOL/L Carbon Dioxide Level 29 21-32 MMOL/L Anion Gap 7 5-14 MMOL/L Blood Urea Nitrogen 12 7-18 MG/DL Creatinine 0.67 0.60-1.30 MG/DL Estimat Glomerular Filtration Rate 102 BUN/Creatinine Ratio 18 Glucose Level 126 H 70-105 MG/DL Calcium Level 8.9 8.5-10.1 MG/DL Corrected Calcium 9.0 8.5-10.1 MG/DL Total Bilirubin 0.5 0.1-1.0 MG/DL Aspartate Amino Transf (AST/SGOT) 28 5-34 U/L Alanine Aminotransferase (ALT/SGPT) 27 0-55 U/L Alkaline Phosphatase 68 40-136 U/L Total Protein 7.4 6.4-8.2 GM/DL Albumin 3.9 3.2-4.5 GM/DL SARS-CoV-2 RNA (RT-PCR) Not Detected Not Detecte My Orders Orders - ALIVIA MONTERROSO YEAST TENDER Cbc With Automated Diff (09/24/22 15:17) Comprehensive Metabolic Panel (09/24/22 15:17) Ekg Tracing (09/24/22 15:17) O2 (09/24/22 15:17) Ed Iv/Invasive Line Start (09/24/22 15:17) Monitor-Rhythm Ecg Trace Only (09/24/22 15:17) Chest Pa/Lat (2 View) (09/24/22 15:17) Albuterol/Ipra Inhalation Soln (Duoneb I (09/24/22 15:30) Methylprednisolone Sod Succ (Solu-Medrol (09/24/22 15:17) Svn Small Volume Nebulizer (09/24/22 15:17) Covid 19 Inhouse Test (09/24/22 15:31) Isolation Central Supply Req (09/24/22 15:31) Medications Given in ED Current Medications Medications Dose Ordered Sig/Sean Route Start Time Stop Time Status Last Admin Dose Admin Albuterol/ Ipratropium 3 ml ONCE ONCE INH 09/24/22 15:30 09/24/22 15:31 DC 09/24/22 16:01 3 ML Vital Signs/I&O 09/24/22 09/24/22 09/24/22 15:15 15:23 16:01 Temp 37.4 Pulse 93 Resp 28 B/P (MAP) 188/94 (125) Pulse Ox 95 92 O2 Delivery Room Air Room Air Room Air Capillary Refill : Progress Note : Progress Note Patient is nontoxic and well-hydrated on exam. Vital signs reassuring without marked hypoxia on room air. Even after walking from the waiting room to the room her oxygen saturations were 92 to 93% on room air. No significant edema noted to the bilateral lower extremities. She does have an expiratory wheeze on auscultation of lungs. Orders placed for CBC, CMP, EKG, and chest x-ray. CBC is unremarkable. CMP notable for hyperglycemia. EKG reveals sinus rhythm with no acute ischemic change or arrhythmia. Chest x-ray reveals no obvious infiltrate on my wet read. Formal radiology read notes some vascular congestion but no discrete infiltrate. Patient does not appear fluid overloaded at this time. Patient was given an IV dose of methylprednisolone as well as a nebulized DuoNeb. Her breath sounds did improve thereafter. She still has a less prominent expiratory wheeze but is moving air overall better. She is not tachypneic and her oxygen saturations have remained stable on room air. She does not need oxygen at this time. Will discharge home with recommendations for supportive care and close follow-up with PCP. Return precautions for urgent symptomology discussed. Patient will be discharged home with a prescription for albuterol inhaler, 4 additional days of prednisone, and 5 days of potassium s upplementation. Departure Impression Primary Impression: Wheezing-associated respiratory infection (WARI) Disposition: HOME, SELF-CARE Condition: Stable Departure-Patient Inst. Decision time for Depature: 16:30 Referrals: PARISA HUTCHINSONP (PCP/Family) Primary Care Physician Patient Instructions: Wheezing Scripts Potassium Chloride (Potassium Chloride) 10 Meq Capsule.er 10 MEQ PO DAILY for 5 Days, #5 CAP 0 Refills Prov: ALIVIA MONTERROSO APRN 09/24/22 Prednisone (Prednisone) 20 Mg Tab 40 MG PO DAILY for 4 Days, #8 TAB 0 Refills Prov: ALIVIA MONTERROSO APRN 09/24/22 Albuterol Sulfate (VENTOLIN HFA) 1 Puff Puff 2-4 PUFF INH Q4H PRN for WHEEZING for 14 Days, #1 EA 0 Refills 1 PUFF = 90 MCG Prov: ALIVIA MONTERROSO APRN 09/24/22 ALIVIA MONTERROSO APRN Sep 24, 2022 15:21
[2022-09-24] MEDS ORDERED: RT-ALBUTEROL/IPRATROPIUM 3 ML (DUONEB) VIAL INH ONE (15:30)
[2022-09-24 15:41] LABS: BASOPHILS % (AUTO) 0 % (0-10); EOSINOPHILS # (AUTO) 0.1 10^3/uL (0.0-0.3); EOSINOPHILS % (AUTO) 1 % (0-10); HEMATOCRIT 42 % (35-52); HEMOGLOBIN 14.6 g/dL (11.5-16.0); LYMPHOCYTES # (AUTO) 2.1 10^3/uL (1.0-4.0); LYMPHOCYTES % (AUTO) 21 % (12-44); MEAN CORPUSCULAR HEMOGLOBIN 31 pg (25-34); MEAN CORPUSCULAR HGB CONC 34 g/dL (32-36); MEAN CORPUSCULAR VOLUME 90 fL (80-99); MEAN PLATELET VOLUME 10.5 fL (9.0-12.2); MONOCYTES # (AUTO) 1.1 10^3/uL (0.0-1.0); MONOCYTES % (AUTO) 11 % (0-12); NEUTROPHILS # (AUTO) 6.6 10^3/uL (1.8-7.8); NEUTROPHILS % (AUTO) 66 % (42-75); PLATELET COUNT 283 10^3/uL (130-400)
--- NOTE | 2022-09-24 15:43 | Diagnostic Imaging Report ---
INDICATION: Shortness of breath. PA and lateral chest obtained at 3:42 p.m. Heart and mediastinal silhouette are normal. There is mild central vascular congestion. There are perihilar and interstitial infiltrates which may represent edema or atypical pneumonia. There is a small amount pleural fluid or pleural thickening in the right costophrenic angle which is stable compared to the prior study. IMPRESSION: Mild central vascular prominence. There are perihilar increased interstitial markings which may represent edema or atypical pneumonia. There is stable pleural thickening in the right costophrenic angle. Dictated by: Dictated on workstation # [id number]
[2022-09-24 15:57] LABS: ALBUMIN 3.9 GM/DL (3.2-4.5); BILIRUBIN,TOTAL 0.5 MG/DL (0.1-1.0); CALCIUM 8.9 MG/DL (8.5-10.1); CREATININE SERUM 0.67 MG/DL (0.60-1.30); POTASSIUM 2.9 MMOL/L (3.6-5.0); TOTAL PROTEIN 7.4 GM/DL (6.4-8.2)
[2022-09-24] MEDS ORDERED: RT-ALBUINH INH (16:29)
[2022-09-24] MEDS ORDERED: PRD20T PO (16:29)
[2022-09-24] MEDS ORDERED: POTA10CA43 PO (16:29)
[2022-09-24 16:50] VITALS: BP 162/88
== END 2022-09-24 16:50 | disposition home or self-care (01) ==
LOC: EDUNIT# 15:04 → ER 15:07
DX: J98.8 Other specified respiratory disorders (principal); R73.9 Hyperglycemia, unspecified; Z20.822 Contact with and (suspected) exposure to COVID-19
CPT/HCPCS: 36415; 71046; 80053; 85025; 87636; 93041; 94640